=== PATIENT | male | born 1990 | race Asian ===

== ENCOUNTER 2019-10-06 23:09 | Emergency (ER) | payer OTHER ==
[~2019-10-06] VITALS: Ht 162.6 cm; Wt 68.8 kg
[2019-10-06 23:13] VITALS: BP 149/88
== END 2019-10-07 00:49 | disposition home or self-care (01) ==
LOC: ED 23:45
DX: S16.1XXA Strain of muscle, fascia and tendon at neck level, initial encounter (principal); V49.59XA Passenger injured in collision with other motor vehicles in traffic accident, initial encounter; Y93.89 Activity, other specified; Y92.410 Unspecified street and highway as the place of occurrence of the external cause; Y99.8 Other external cause status
CPT/HCPCS: 72125; 99284